=== PATIENT | male | born 1950 | race Caucasian/White ===

== ENCOUNTER 2017-04-21 10:18 | Inpatient (IN) ==
[2017-04-21 10:47] LABS: MANUAL DIFF NEEDED? NO
[2017-04-21 10:53] LABS: BASO% 0.5 % (0.0-0.8); EOS# 0.08 X1000 (0.0-0.7); HEMATOCRIT 44.4 % (42.0-52.0); IMM GRAN# 0.08 X1000 (0.0-0.04); LYMPH# 1.76 X1000 (1.2-3.4); LYMPH% 22.2 % (20.5-51.1); MCH 32.2 PG (27-31); MCV 89.3 FL (81-99); MONO# 0.73 X1000 (0.11-0.59); MONO% 9.2 % (1.7-9.3); MPV 11.3 FL (7.4-10.4); NEUT% 66.1 % (42.2-75.2); PLT 178 X1000 (130-400); RBC 4.97 XMIL (4.7-6.1)
[2017-04-21 11:10] LABS: CALCIUM 9.2 mg/dL (8.8-10.2); POTASSIUM 4.8 mmol/L (3.5-5.1); TOTAL BILIRUBIN 1.4 mg/dL (0.20-1.00)
[2017-04-21] MEDS ORDERED: NS 1,000 ML IV ONE ×3 (11:41→15:00)
[2017-04-21] MEDS ORDERED: HUMULIN R IV ONE (11:41)
[2017-04-21] MEDS ORDERED: HUMULIN 70/30 (PARKWAY) ONE (11:56)
[2017-04-21 12:51] LABS: BE -3.8 mmoll (-3.0-3.0); BLOOD TYPE ARTERIAL; DRAW SITE R BRACHIAL; METHB 0.8 % (0.0-1.5); O2(CT) 19.7 mL/dL (15.0-23.0); PCO2(98.6) 36 mmHg (35-45); PO2(98.6) 69 mmHg (60-100); SAMPLE BLOOD; SAO2 95.1 % (95.0-100.0); THB 15.2 g/dL (11.5-17.4); pH(98.6) 7.37 (7.35-7.45)
[2017-04-21 12:54] LABS: ALLEN TEST NO; MODALITY ROOM AIR
[2017-04-21 13:05] LABS: URINE CULTURE PL NEEDED? NO
[2017-04-21 13:08] LABS: BILIRUBIN URINE NEGATIVE (NEGATIVE); BLOOD URINE 4+ (NEGATIVE); CLARITY CLEAR (CLEAR); COLOR YELLOW; LEUKOCYTES URINE NEGATIVE (NEGATIVE); NITRITE URINE NEGATIVE (NEGATIVE); PROTEIN URINE 1+(30 mg/dL) mg/dL (NEGATIVE); UROBILINOGEN URINE NORMAL
[2017-04-21 13:23] LABS: URINE CAST NONE SEEN /LPF; URINE CRYSTAL NONE SEEN /HPF; URINE EPITHELIAL CELLS <10 /HPF (<10); URINE RBC <10 /HPF (<10); URINE SOURCE CLEAN CATCH; URINE WBC <10 /HPF (<10)
[2017-04-21] MEDS ORDERED: ATIVAN IV PRN (15:00)
[2017-04-21] MEDS ORDERED: ZOFRAN IV PRN (15:00)
[2017-04-21] MEDS ORDERED: TYLENOL PO PRN (15:00)
[2017-04-21 15:20] LABS: HEMOGLOBIN A1C 10.2 % (4.8-6.0)
[2017-04-21] MEDS: HUMALOG SUBQ SCH ×2 (17:22→23:22)
[2017-04-21] MEDS: 1/2 NS 1,000 ML IV SCH (17:23)
[2017-04-21 18:01] LABS: CALCIUM 8.1 mg/dL (8.8-10.2); POTASSIUM 4.1 mmol/L (3.5-5.1)
[2017-04-21] MEDS ORDERED: COUMADIN PO SCH (21:00)
[2017-04-22] MEDS: 1/2 NS 1,000 ML IV SCH ×2 (01:13→11:18)
[2017-04-22 05:31] LABS: MANUAL DIFF NEEDED? NO
[2017-04-22 05:39] LABS: BASO% 0.3 % (0.0-0.8); EOS# 0.09 X1000 (0.0-0.7); EOS% 1.5 % (0.0-10.0); HEMATOCRIT 37.5 % (42.0-52.0); HEMOGLOBIN 13.3 g/dL (14.0-18.0); IMM GRAN# 0.04 X1000 (0.0-0.04); IMM GRAN% 0.7 % (0.0-0.5); LYMPH# 1.76 X1000 (1.2-3.4); LYMPH% 29.7 % (20.5-51.1); MCH 32.5 PG (27-31); MCHC 35.5 g/dL (33-37); MCV 91.7 FL (81-99); MONO# 0.54 X1000 (0.11-0.59); MONO% 9.1 % (1.7-9.3); NEUT% 58.7 % (42.2-75.2); PLT 125 X1000 (130-400); RBC 4.09 XMIL (4.7-6.1)
[2017-04-22 06:02] LABS: AGAP 10; BUN 20 mg/dL (8-22); CALCIUM 7.9 mg/dL (8.8-10.2); CHLORIDE 102 mmol/L (98-107); COSMO 277; SODIUM 133 mmol/L (136-145); TCO2 21 mmol/L (25-35)
[2017-04-22] MEDS: HUMALOG SUBQ SCH (07:47)
[2017-04-22 08:32] LABS: INR 1.62 (0.86-1.15); PROTIME 20.5 Seconds (12.1-15.5)
[2017-04-22] MEDS: HUMALOG DOSE (PARKWAY) SUBQ SCH ×2 (11:12→16:08)
[2017-04-22] MEDS ORDERED: WELLBUTRIN PO SCH (11:15)
[2017-04-22 11:51] VITALS: BP 122/82
[2017-04-22] MEDS ORDERED: LANTUS INSULIN (PARKWAY) SUBQ ONE (14:38)
[2017-04-22] MEDS ORDERED: ZANTAC PO SCH (16:00)
[2017-04-22] MEDS ORDERED: GLUCOPHAGE PO SCH (17:00)
[2017-04-22] MEDS ORDERED: LIPITOR PO SCH (21:00)
[2017-04-22] MEDS ORDERED: ULTRAM PO SCH (21:00)
[2017-04-22] MEDS ORDERED: COUMADIN PO SCH (21:00)
[2017-04-23] MEDS ORDERED: LANTUS INSULIN (PARKWAY) SUBQ SCH (09:00)
[2017-04-23] MEDS ORDERED: ZYLOPRIM PO SCH (09:00)
[2017-04-23] MEDS ORDERED: PRINIVIL PO SCH (09:00)
== END 2017-04-22 17:03 | disposition home or self-care (01) ==
LOC: P.ED 10:18 → SUATTDRO 14:14 → P.MEDSURG 14:14
PROVIDERS: ATTEND Internal Medicine